=== PATIENT | female | born 1985 | race Caucasian/White ===

== ENCOUNTER 2016-10-01 00:06 | Emergency (ER) | payer MEDICAID ==
--- NOTE | 2016-10-06 01:25 | ER ---
ADMIT: 10/01/2016 RM/LOC: ER [facility] MR#: [id number] [place], [place] [id number] [place], [place] [address] [id number] Emergency Room Report SEX: F AGE: 31 : 1985 DATE: 10/01/2016 ADDENDUM: See T-sheet for complete H and P. A 31-year-old female, who comes in with complaints of some pain on her left lower chest and left upper abdomen. It has been there for many months if not over a year, and it has been intermittent in nature. She does state it is worse when she sits in certain positions. She denies any shortness of breath, is not having any nausea or vomiting. No change in bowel or bladder function. On physical exam, she does have some mild tenderness on her left lower chest wall with no signs of skin lesions or rashes. No ecchymosis. No swelling. When I auscultated her chest, she did have some mild diffuse wheezes throughout. As this has been there for at least a year with her intermittent pain, and it has not really changed, I do not believe it is anything dangerous. I did give her a shot of Toradol here for pain and have instructed her to use ibuprofen three times a day for the next several days. She was given a breathing treatment in the emergency department for her wheezes and will be discharged home with a prescription for albuterol MDI, which she has used before. She is encouraged to quit smoking. As she does not have a doctor, she is told she can follow up with Dr. Starr for the problem she is having today if they do not get better. DIAGNOSES: 1. Chest wall pain. 2. Tobacco abuse. Dung Duncan MD/ marcia JOB #: [id number] CC: Vidal Feng MD, Attending Physician
== END 2016-10-01 01:09 | disposition home or self-care (01) ==
LOC: ER 00:06
DX: R07.89 Other chest pain (principal); F17.210 Nicotine dependence, cigarettes, uncomplicated; Z90.49 Acquired absence of other specified parts of digestive tract; Z98.890 Other specified postprocedural states